=== PATIENT | female | born 1970 | race Caucasian/White ===

== ENCOUNTER 2021-11-02 12:30 | Inpatient (IN) | payer OTHER ==
[2021-11-03 12:35] LABS: Hemoglobin 14.2 g/dL (12.0-15.5); Mean Corpuscular HGB CONC 32.9 g/dL (32.0-36.0); Mean Corpuscular Hemoglobin 29.1 pg (27.0-33.0); Mean Corpuscular Volume 88.5 fl (81.6-98.3); Mean Platelet Volume 9.6 fl (7.4-10.4); Platelet Count 331 10x3/uL (150-450); RBC Distribution Width 12.3 % (11.5-14.5); Red Blood Cell (RBC) Count 4.88 10x6/uL (3.90-5.03); White Blood Cell (WBC) Count 5.6 10x3/uL (3.5-10.5)
[2021-11-03 12:44] LABS: INR-International Normal Ratio 0.9; PTT 24.9 sec (22.0-33.0); Prothrombin Time 10.1 sec (9.5-12.1)
[2021-11-03 12:52] LABS: Anion Gap 16 mmol/L (10-20); BUN (Urea Nitrogen) 12 mg/dL (7.0-18.7); Calc. Creatinine Clearance 0 mL/min (70-130); Calcium 9.7 mg/dL (7.8-10.44); Carbon Dioxide 23 mmol/L (22-29); Chloride 110 mmol/L (98-107); Estimated GFR 55; Glucose 105 mg/dL (70-105); Potassium 4.7 mmol/L (3.5-5.1); Sodium 144 mmol/L (136-145)
[2021-11-10] MEDS ORDERED: EPINEPHrine 1 MG/ML AMP ONE (06:24)
[2021-11-10] MEDS ORDERED: Bupivacaine PF 0.5% 30 ML VIAL ONE (06:25)
[2021-11-10] MEDS ORDERED: Lidocaine 1% MPF 2 ML VIAL ONE (06:39)
[2021-11-10] MEDS ORDERED: Famotidine/PF 20 mg/2ml Vial ONE (06:39)
[2021-11-10] MEDS ORDERED: CEFAZOLIN 2 GM VIAL ONE (06:55)
[2021-11-10] MEDS ORDERED: Midazolam HCl 2 mg/2 ml Vial ONE ×3 (07:41→12:47)
[2021-11-10] MEDS ORDERED: PROPOFOL 20 ML ONE (07:46)
[2021-11-10] MEDS ORDERED: Fentanyl 100 MCG/2 ML VIAL ONE ×3 (07:46→11:09)
[2021-11-10] MEDS ORDERED: Lidocaine 1% PF 5 ML VIAL ONE (07:47)
[2021-11-10] MEDS ORDERED: Propofol 1,000 MG/100 ML VIAL IV ONE ×2 (07:56→08:47)
[2021-11-10] MEDS ORDERED: PHENYLEPHRINE-NS 100 MCG/ML 10 ML SYRINGE ONE (08:07)
[2021-11-10] MEDS ORDERED: ePHEDrine Sulfate 50 MG/10 ML VIAL ONE (08:37)
[2021-11-10] MEDS ORDERED: Phenylephrine 10 MG/ML VIAL ONE (08:47)
[2021-11-10] MEDS ORDERED: Dexamethasone 4 mg/ml Vial ONE (08:59)
[2021-11-10] MEDS ORDERED: Ondansetron PF 4 MG/2 ML Vial ONE (08:59)
[2021-11-10] MEDS ORDERED: Glycopyrrolate 0.2 MG/ML 5 ML SYRINGE ONE (10:33)
[2021-11-10] MEDS ORDERED: Atropine Sulfate 0.4 mg/1 ml Vial ONE (10:35)
[2021-11-10] MEDS ORDERED: clonazePAM 1 MG TAB PO PRN (10:55)
[2021-11-10] MEDS ORDERED: Zolpidem Tartrate 5 MG TAB PO PRN (10:55)
[2021-11-10] MEDS ORDERED: HYDROmorphone 0.5 MG/0.5 ML SYRINGE ONE ×3 (12:07→12:47)
[2021-11-10] MEDS ORDERED: DEXTROAMPHETAMINE PO PRN (12:42)
[2021-11-10] MEDS ORDERED: AMPHETAMINE PO PRN (12:42)
[2021-11-10] MEDS: Morphine 4 MG/ML VIAL SLOW IVP PRN ×3 (15:34→20:25)
[2021-11-10] MEDS: CEFAZOLIN 2 GM in Sodium Chloride 0.9% 100 ML IVPB SCH ×2 (15:40→20:24)
[2021-11-10] MEDS: Gabapentin 300 MG CAP PO SCH (20:24)
[2021-11-10] MEDS: Simvastatin 10 MG TAB PO SCH (20:24)
[2021-11-10] MEDS: Aspirin 81 mg Enteric Coated Tablet PO SCH (20:24)
[2021-11-10] MEDS ORDERED: HYDROmorphone 0.5 MG/0.5 ML SYRINGE SLOW IVP PRN (21:30)
[2021-11-11] MEDS: HYDROmorphone 0.5 MG/0.5 ML SYRINGE SLOW IVP PRN ×2 (01:02→03:37)
[2021-11-11] MEDS: CEFAZOLIN 2 GM in Sodium Chloride 0.9% 100 ML IVPB SCH ×2 (03:27→12:00)
[2021-11-11] MEDS ORDERED: HYDROmorphone 0.5 MG/0.5 ML SYRINGE SLOW IVP PRN (08:33)
[2021-11-11] MEDS ORDERED: AMPHETAMINE PO SCH (09:00)
[2021-11-11] MEDS ORDERED: DEXTROAMPHETAMINE PO SCH (09:00)
[2021-11-11] MEDS: Gabapentin 300 MG CAP PO SCH ×2 (09:35→22:17)
[2021-11-11] MEDS: Aspirin 81 mg Enteric Coated Tablet PO SCH ×2 (09:35→22:17)
[2021-11-11] MEDS: Morphine 4 MG/ML VIAL SLOW IVP PRN ×2 (14:57→22:32)
[2021-11-11] MEDS: diphenhydrAMINE 50 MG CAP PO PRN ×2 (14:58→22:27)
[2021-11-11] MEDS: Simvastatin 10 MG TAB PO SCH (22:18)
[2021-11-12] MEDS: Morphine 4 MG/ML VIAL SLOW IVP PRN ×2 (01:06→03:50)
[2021-11-12] MEDS: HYDROcodone/Acetaminophen 10/325 mg Tablet PO PRN ×2 (07:25→11:30)
[2021-11-12] MEDS: Gabapentin 300 MG CAP PO SCH (08:31)
[2021-11-12] MEDS: Aspirin 81 mg Enteric Coated Tablet PO SCH (08:31)
[2021-11-12 10:28] VITALS: BP 93/52; TEMP 97.1
[2021-11-17] MEDS ORDERED: Ergocalciferol 1.25 MG(50,000 UNITS) CAP PO SCH (09:00)
== END 2021-11-12 11:35 | disposition home or self-care (01) | DRG 455 ==
LOC: CSHERHOLD 11-10 05:50 → EDSTATUS 11-10 10:00 → CSHTELE 11-10 15:13
PROVIDERS: ADMIT Orthopaedic Surgery; ATTEND Orthopaedic Surgery
PROC: 0SG00AJ Fusion of Lumbar Vertebral Joint with Interbody Fusion Device, Posterior Approach, Anterior Column, Open Approach (ICD-10-PCS; principal; 2021-11-10)
PROC: 0SG00K1 Fusion of Lumbar Vertebral Joint with Nonautologous Tissue Substitute, Posterior Approach, Posterior Column, Open Approach (ICD-10-PCS; 2021-11-10)
DX: M41.86 Other forms of scoliosis, lumbar region (principal); M48.061 Spinal stenosis, lumbar region without neurogenic claudication; M54.50 Low back pain, unspecified; M54.16 Radiculopathy, lumbar region
CPT/HCPCS: 72110; 80048; 85027; 85610; 85730; 86850; 86900; 86901; 94760; C1713; C1763; C1889; J0171; J0461; J0690; J1100; J1170; J2250; J2270; J2370; J2405; J2704; J3010; J3490; S0020; S0028

== ENCOUNTER 2021-11-03 11:29 | Outpatient (CLI) | payer OTHER ==
[2021-11-03 12:35] LABS: Hemoglobin 14.2 g/dL (12.0-15.5); Mean Corpuscular HGB CONC 32.9 g/dL (32.0-36.0); Mean Corpuscular Hemoglobin 29.1 pg (27.0-33.0); Mean Corpuscular Volume 88.5 fl (81.6-98.3); Mean Platelet Volume 9.6 fl (7.4-10.4); Platelet Count 331 10x3/uL (150-450); RBC Distribution Width 12.3 % (11.5-14.5); Red Blood Cell (RBC) Count 4.88 10x6/uL (3.90-5.03); White Blood Cell (WBC) Count 5.6 10x3/uL (3.5-10.5)
[2021-11-03 12:44] LABS: INR-International Normal Ratio 0.9; PTT 24.9 sec (22.0-33.0); Prothrombin Time 10.1 sec (9.5-12.1)
[2021-11-03 12:52] LABS: Anion Gap 16 mmol/L (10-20); BUN (Urea Nitrogen) 12 mg/dL (7.0-18.7); Calc. Creatinine Clearance 0 mL/min (70-130); Calcium 9.7 mg/dL (7.8-10.44); Carbon Dioxide 23 mmol/L (22-29); Chloride 110 mmol/L (98-107); Estimated GFR 55; Glucose 105 mg/dL (70-105); Potassium 4.7 mmol/L (3.5-5.1); Sodium 144 mmol/L (136-145)
== END 2021-11-03 11:30 | disposition home or self-care (01) ==
LOC: CSHLAB 11:29
PROVIDERS: ATTEND Orthopaedic Surgery
DX: Z01.812 Encounter for preprocedural laboratory examination (principal); M54.50 Low back pain, unspecified; M54.16 Radiculopathy, lumbar region
CPT/HCPCS: 80048; 85027; 85610; 85730; 86850; 86900; 86901